=== PATIENT | female | born 1950 | race Caucasian/White ===

== ENCOUNTER 2017-05-22 11:23 | Emergency (ER) | payer MEDICARE, OTHER ==
[~2017-05-22] VITALS: Ht 157.5 cm; Wt 63.5 kg
[2017-05-22 11:24] VITALS: BP 118/70; PULSE 86; RESP 18; TEMP 99.8; O2SAT 100
--- NOTE | 2017-05-22 11:41 | PD ---
Physical Exam Time Seen by Provider: 11:39 Narrative 66 y/o female fell 6 days ago and cut her L leg. She now has redness, drainage , worsening pain. She has been using leftover pen vk since yesterday but symptoms have been worsening. +chills. On vacation from [place]. Vital signs reviewed. Seen at triage desk. Awaiting bed placement. Data Data Last Documented VS Vital Signs Date Time Temp Pulse Resp B/P Pulse Ox O2 Delivery O2 Flow Rate FiO2 05/22/17 11:24 99.8 86 18 118/70 100 Room Air [facility] Medical Record Reviewed: Yes Supervised Visit with ROSALVA: Alfonzo [place] May 22, 2017 11:41
[2017-05-22 13:37] VITALS: BP 131/77; PULSE 87; RESP 16; TEMP 98.2; O2SAT 98
--- NOTE | 2017-05-22 13:46 | PD ---
HPI Chief Complaint: Skin Problem Time Seen by Provider: 13:46 Travel History International Travel<30 days: No Contact w/Intl Traveler<30days: No Traveled to known affect area: No History of Present Illness HPI 66-year-old female presents to the emergency department for evaluation of skin infection to her left lateral lower leg. Patient states she cut herself one week ago. She was seen at urgent care center and her tetanus immunization was updated. The wound was bandaged. She did not receive sutures was not placed on antibiotics. She states that started yesterday, she noticed worsening pain and erythema with purulent drainage. The patient stated she started taking Pen- Vee K yesterday that she had left over at home. She denies any fevers. She did have chills last night. Patient has history of TIA, CHF, hypertension, hyperlipidemia, GERD, depression. PFSH Past Medical History Congestive Heart Failure: Yes Cerebrovascular Accident: Yes (TIA) Coronary Artery Disease: Yes Hypertension: Yes Influenza Vaccination: Yes Past Surgical History Section: Yes Cholecystectomy: Yes Tonsillectomy: Yes (T&A) Social History Alcohol Use: Yes (3-4 TIMES PER WEEK (WINE)) Tobacco Use: No Substance Use: No Allergies-Medications (Allergen,Severity, Reaction): Coded Allergies: Vancomycin (Verified Allergy, Unknown, 05/22/17) Reported Meds & Prescriptions Reported Meds & Active Scripts Active Keflex (Cephalexin) 500 Mg Cap 500 Mg PO Q6H 10 Days Bactrim DS (Sulfamethoxazole-Trimethoprim) 800-160 Mg Tab 1 Tab PO BID Reported Nitroglycerin SL (Nitroglycerin) 0.4 Mg Subl 0.4 Mg SL DIRECTED PRN ONE TABLET UNDER THE TONGUE NEEDED FOR CHEST PAIN, MAY REPEAT EVERY FIVE MINUTES FOR A TOTAL OF 3 DOSES OR CALL 911 IF NO RELIEF Centrum Silver (Multiple Vitamins W/ Minerals) 1 Chw Chw 1 Tab PO DAILY Aspirin Low Dose (Aspirin) 81 Mg Tabdr 81 Mg PO DAILY Trazodone (Trazodone HCl) 50 Mg Tab 50 Mg PO HS Zocor (Simvastatin) 40 Mg Tab 40 Mg PO DAILY Cymbalta DR (Duloxetine HCl) 60 Mg Capdr 60 Mg PO DAILY Tenormin (Atenolol) 50 Mg Tab 50 Mg PO DAILY Potassium Chloride ER (Potassium Chloride) 20 Meq Tab 30 Meq PO DAILY Zyloprim (Allopurinol) 100 Mg Tab 100 Mg PO DAILY Lasix (Furosemide) 20 Mg Tab 20 Mg PO DAILY Prilosec (Omeprazole Magnesium) 20 Mg Tab 20 Mg PO DAILY Plavix (Clopidogrel Bisulfate) 75 Mg Tab 75 Mg PO DAILY Review of Systems Except as stated in HPI: all other systems reviewed are Neg Physical Exam Narrative GENERAL: Well-nourished, well-developed female patient, ambulatory. Afebrile. SKIN: Focused skin assessment warm/dry. Patient has 9 cm x 3 cm area of erythema to the left lateral lower leg. There is a 1 cm area with mild purulent drainage. Culture was taken. No lymphangitis. HEAD: Normocephalic. Atraumatic. EYES: No scleral icterus. No injection or drainage. NECK: Supple, trachea midline. No JVD or lymphadenopathy. CARDIOVASCULAR: Regular rate and rhythm without murmurs, gallops, or rubs. Left pedal pulse 2+. RESPIRATORY: Breath sounds equal bilaterally. No accessory muscle use. Lungs sounds are clear to auscultation. GASTROINTESTINAL: Abdomen soft, non-tender, nondistended. MUSCULOSKELETAL: No cyanosis, or edema. BACK: Nontender without obvious deformity. No CVA tenderness. Data Data Last Documented VS Vital Signs Date Time Temp Pulse Resp B/P Pulse Ox O2 Delivery O2 Flow Rate FiO2 05/22/17 13:37 98.2 87 16 131/77 98 Room Air Orders Complete Blood Count With Diff (05/22/17 13:44) Basic Metabolic Panel (Bmp) (05/22/17 13:44) Iv Access Insert/Monitor (05/22/17 13:44) Tibia/Fibula (Ap/Lat) (05/22/17 ) Wound Culture And Gram Stain (05/22/17 13:47) Clindamycin Inj (Cleocin Inj) (05/22/17 14:15) Potassium Chloride (Kcl) (05/22/17 14:45) Ketorolac Inj (Toradol Inj) (05/22/17 15:00) Acetaminophen (Tylenol) (05/22/17 15:00) Labs Laboratory Tests Test 05/22/17 14:00 White Blood Count 9.0 TH/MM3 Red Blood Count 3.51 MIL/MM3 Hemoglobin 11.7 GM/DL Hematocrit 34.5 % Mean Corpuscular Volume 98.3 FL Mean Corpuscular Hemoglobin 33.3 PG Mean Corpuscular Hemoglobin 33.8 % Concent Red Cell Distribution Width 13.7 % Platelet Count 376 TH/MM3 Mean Platelet Volume 7.8 FL Neutrophils (%) (Auto) 73.4 % Lymphocytes (%) (Auto) 15.1 % Monocytes (%) (Auto) 10.1 % Eosinophils (%) (Auto) 0.7 % Basophils (%) (Auto) 0.7 % Neutrophils # (Auto) 6.6 TH/MM3 Lymphocytes # (Auto) 1.4 TH/MM3 Monocytes # (Auto) 0.9 TH/MM3 Eosinophils # (Auto) 0.1 TH/MM3 Basophils # (Auto) 0.1 TH/MM3 CBC Comment DIFF FINAL Differential Comment Sodium Level 133 MEQ/L Potassium Level 3.0 MEQ/L Chloride Level 95 MEQ/L Carbon Dioxide Level 28.1 MEQ/L Anion Gap 10 MEQ/L Blood Urea Nitrogen 7 MG/DL Creatinine 0.78 MG/DL Estimat Glomerular Filtration 74 ML/MIN Rate Random Glucose 113 MG/DL Calcium Level 8.2 MG/DL MDM Medical Decision Making Medical Screen Exam Complete: Yes Emergency Medical Condition: Yes Medical Record Reviewed: Yes Interpretation(s) Last Impressions Tibia/Fibula X-Ray 05/22/17 0000 Signed Impressions: Service Date/Time: , May 22, 2017 13:55 - CONCLUSION: Unremarkable examination of the left tibia. Clem Stanley Jr., MD Differential Diagnosis Cellulitis versus abscess versus sepsis Narrative Course 66-year-old female presents to the emergency department for evaluation of skin infection left lateral lower leg. Patient does appear well on exam. Wound culture is taken. CBC shows normal WBC of 9.0. BMP shows hypokalemia of 3.0. X-ray of the left tibia/fibula shows no acute abnormality. Patient is given clindamycin 600 mg IV. She is also given potassium 40 mEq by mouth. Patient will be discharged prescription for Bactrim, Keflex, Lortab for pain. She is to follow with her primary care physician. She is instructed to return immediately for any acute worsening of symptoms. She verbalizes agreement and understanding. Diagnosis Primary Impression: Cellulitis of left leg Referrals: Primary Care Physician call for appointment Patient Instructions: Cellulitis (ED), General Instructions Additional Instructions: Take antibiotics as directed until gone. Clean twice daily with soap and water and apply [id number] antibiotic ointment. Keep clean and dry. Take Lortab as instructed as needed for moderate to severe pain. Caution this can make you drowsy so do not drive after taking. Follow-up with your primary care physician. Return to the emergency department for any acute worsening of symptoms. Med/Other Pt SpecificInfo: Prescription(s) given Scripts Hydrocodone-Acetaminophen (Lortab)5-325 Mg Tab1 Tab PO Q6H PRN (PAIN) #12 TAB Ref 0 Prov:Lida Kaiser MD 05/22/17 Cephalexin (Keflex)500 Mg [id number] Mg PO Q6H 10 Days Ref 0 Prov:Danni Garner 05/22/17 Sulfamethoxazole-Trimethoprim (Bactrim DS)800-160 Mg Tab1 Tab PO BID #20 TAB Ref 0 Prov:Danni Garner 05/22/17 Disposition: 01 DISCHARGE HOME Condition: Stable Danni Garner May 22, 2017 13:46
[2017-05-22] MEDS ORDERED: ASPI81TA9 PO (13:47)
[2017-05-22] MEDS ORDERED: PRIL20TA2 PO (13:47)
[2017-05-22] MEDS ORDERED: POTA-163 PO (13:47)
[2017-05-22] MEDS ORDERED: FURO1TAB62 PO (13:47)
[2017-05-22] MEDS ORDERED: CENTCHW3 PO (13:47)
[2017-05-22] MEDS ORDERED: ATEN1TAB74 PO (13:47)
[2017-05-22] MEDS ORDERED: PLAV75TA29 PO (13:47)
[2017-05-22] MEDS ORDERED: ALLO100 PO (13:47)
[2017-05-22] MEDS ORDERED: NITR1SUB3 SL (13:47)
[2017-05-22] MEDS ORDERED: TRAZ50TA12 PO (13:47)
[2017-05-22] MEDS ORDERED: ZOCO40TA PO (13:47)
[2017-05-22] MEDS ORDERED: CYMB60CA PO (13:47)
[2017-05-22 14:14] LABS: AUTOMATED NEUTROPHIL # 6.6 TH/MM3 (1.8-7.7); BASOPHIL # 0.1 TH/MM3 (0-0.2); BASOPHIL % 0.7 % (0.0-2.0); EOSINOPHIL # 0.1 TH/MM3 (0-0.4); EOSINOPHIL % 0.7 % (0.0-4.0); HEMATOCRIT 34.5 % (35.0-46.0); HEMO FLAGS DIFF FINAL; LYMPH % 15.1 % (9.0-44.0); LYMPHOCYTE # 1.4 TH/MM3 (1.0-4.8); MEAN CELL VOLUME 98.3 FL (80.0-100.0); MEAN CORPUSCULAR HEMOGLOBIN 33.3 PG (27.0-34.0); MEAN CORPUSCULAR HGB CONC 33.8 % (32.0-36.0); MONO % 10.1 % (0.0-8.0); NEUT % 73.4 % (16.0-70.0); PLATELET COUNT 376 TH/MM3 (150-450); RED BLOOD COUNT 3.51 MIL/MM3 (4.00-5.30); RED CELL DISTRIBUTION WIDTH 13.7 % (11.6-17.2)
[2017-05-22] MEDS ORDERED: CLINDAMYCIN INJ 600 MG in SODIUM CHLORIDE 0.9% INJ 100 ML IV ONE (14:15)
[2017-05-22 14:28] LABS: BICARBONATE 28.1 MEQ/L (21.0-32.0)
--- NOTE | 2017-05-22 14:42 | RADRPT ---
EXAM DATE/TIME: 05/22/2017 13:55 [facility] COMPARISON: No previous studies available for comparison. INDICATIONS : Possible infection, scraped her left leg 6 days ago on a [place] air conditioner where she was staying on vacation. MEDICAL HISTORY : None. SURGICAL HISTORY : None. ENCOUNTER: Initial ACUITY: 4 - 6 days PAIN SCORE: 10/10 LOCATION: Left tib/fib FINDINGS: Two view examination of the left tibia demonstrates no evidence of fracture or dislocation. Bony min eralization is normal. The soft tissue structures are intact. CONCLUSION: Unremarkable examination of the left tibia. Clem Stanley Jr., MD on May 22, 2017 at 14:39 Board Certified Radiologist. This report was verified electronically.
[2017-05-22] MEDS ORDERED: POTASSIUM CHLORIDE 20 MEQ CONTROLLED RELEASE TAB PO ONE (14:45)
[2017-05-22] MEDS ORDERED: CEPH-460 PO (14:53)
[2017-05-22] MEDS ORDERED: BACT800T5 PO (14:53)
[2017-05-22] MEDS ORDERED: HYDR-3533 PO (14:55)
[2017-05-22] MEDS ORDERED: KETOROLAC TROMETHAMINE 30 MG/ML (IVP) VIAL IV PUSH ONE (15:00)
[2017-05-22] MEDS ORDERED: ACETAMINOPHEN 325 MG TAB PO ONE (15:00)
== END 2017-05-22 15:20 | disposition home or self-care (01) ==
LOC: NEPD 11:23
DX: L03.116 Cellulitis of left lower limb (principal); E87.6 Hypokalemia; A49.02 Methicillin resistant Staphylococcus aureus infection, unspecified site; I50.9 Heart failure, unspecified; I10 Essential (primary) hypertension; E78.5 Hyperlipidemia, unspecified; K21.9 Gastro-esophageal reflux disease without esophagitis; I25.10 Atherosclerotic heart disease of native coronary artery without angina pectoris; Z86.73 Personal history of transient ischemic attack (TIA), and cerebral infarction without residual deficits
CPT/HCPCS: 73590; 80048; 85025; 86403; 87070; 87186; 96365; 96375; 99284; J1885; 87205